=== PATIENT | male | born 1945 | race Caucasian/White ===

== ENCOUNTER → 2025-01-05 | Outpatient (CLI) | payer OTHER ==
[2025-01-05 16:30] LABS: HEMOGLOBIN A1C 6.2 % (4.0-6.0)
[2025-01-05 17:03] LABS: ALBUMIN 3.8 g/dL (3.5-5.0); BILIRUBIN,TOTAL 0.5 mg/dL (0.2-1.0); CREATININE 1.3 mg/dL (0.5-1.3); POTASSIUM 4.3 mmol/L (3.5-5.1); TOTAL PROTEIN, SERUM 7.5 g/dL (6.0-8.3)
== END | disposition home or self-care (01) ==
LOC: LAB 11:34
PROVIDERS: ATTEND Student in an Organized Health Care Education/Training Program
DX: E78.5 Hyperlipidemia, unspecified (principal)
CPT/HCPCS: 36415; 80053; 80061; 83036